=== PATIENT | female | born 1980 | race Caucasian/White ===

== ENCOUNTER 2018-10-18 07:00 | Day surgery (SDC) | payer OTHER ==
[2018-10-15 08:18] VITALS: BMI 53.7
[2018-10-18] MEDS ORDERED: ROCURONIUM BROMIDE 50 MG/5 ML VIAL ONE (08:18)
[2018-10-18] MEDS ORDERED: PROPOFOL 20 ML ONE ×2 (08:18→09:29)
[2018-10-18] MEDS ORDERED: MIDAZOLAM HCL 2 MG/2 ML SINGLE DOSE VIAL ONE ×2 (08:19)
[2018-10-18] MEDS ORDERED: SUCCINYLCHOLINE CHLORIDE 200 MG/10 ML VIAL ONE (09:01)
[2018-10-18] MEDS ORDERED: DEXAMETHASONE SOD PHOSPHATE 4 MG/1 ML VIAL ONE (09:16)
[2018-10-18] MEDS ORDERED: DESFLURANE GAS 240 ML BOTTLE IH ONE (09:37)
[2018-10-18] MEDS ORDERED: GLYCOPYRROLATE 0.2 MG/1 ML VIAL ONE (09:56)
[2018-10-18] MEDS ORDERED: NEOSTIGMINE METHYLSULFATE 0.5 MG/ML - 10 ML MDV ONE (09:56)
[2018-10-18] MEDS ORDERED: BUPIVACAINE HCL/PF (5 MG/ML) 30 ML VIAL IJ ONE ×2 (10:03)
--- NOTE | 2018-10-18 10:41 | OP ---
Operative Note - Note: Operative Date: 10/18/18 Pre-Operative Diagnosis: elective sterilization Operation: laparoscopic bilateral salpingectomy Post-Operative Diagnosis: Same as Pre-op Surgeon: Yamileth Suarez Log Rafter: Brittany Brito Anesthesiologist/GUTTER HANGER: Tata Chapa Anesthesia: General Specimens Removed: bilateral fallopian tubes Estimated Blood Loss (mls): 5 Drains, Volume Out (mls): 250 (urine in howard) Fluid Volume Replaced (mls): 700 Operative Report Dictated: Yes
--- NOTE | 2018-10-18 10:42 | SURG ---
Surgery Body Line Finisher Note Body Line Finisher: Brittany Brito PA-C Date of Service: 10/18/18 Diagnosis: elective sterilization Procedure: laparoscopic bilateral salpingectomy I was present for the entirety of the operative procedure. For further detail, please refer to operative report. Visit type - Case Type Case Type: Scheduled - Emergency Emergency Visit: No - New patient This patient is new to me today: Yes Date on this admission: 10/18/18
--- NOTE | 2018-10-18 11:03 | HP ---
History & Physical Update - History History: No Change - Physical Physical: No Change - Assessment Assessment: No Change - Plan Plan: No Change (no change since visit on 09/24/18)
[2018-10-18] MEDS ORDERED: LACTATED RINGERS SOLUTION 1,000 ML IV SCH (12:00)
[2018-10-18] MEDS ORDERED: oxyCODONE HCL 5 MG TABLET PO PRN (12:00)
[2018-10-18] MEDS ORDERED: ONDANSETRON 4 MG/2 ML VIAL IVPUSH PRN (12:00)
--- NOTE | 2018-10-18 12:25 | OP ---
Operative Note - Note: Operative Date: 10/18/18 Pre-Operative Diagnosis: voluntary sterilization Operation: Laparoscopic bilateral salpingectomy Findings: normal tubes ad ovaries Post-Operative Diagnosis: Same as Pre-op Surgeon: Yamileth Suarez Anesthesiologist/SOCKET WELDER HELPER: Tata Chapa Anesthesia: General Estimated Blood Loss (mls): 5 Operative Report Dictated: Yes
[2018-10-18] MEDS ORDERED: oxyCODONE HCL 5 MG TABLET PO ONE (13:10)
[2018-10-18] MEDS ORDERED: oxyCODONE HCL 5 MG TABLET ONE (13:17)
[2018-10-18 14:45] VITALS: BP 105/63; PULSE 78; TEMP 98.2
--- NOTE | 2018-10-18 21:05 | OP ---
DATE OF OPERATION: 10/18/2018 PREOPERATIVE DIAGNOSIS: Voluntary sterilization. OPERATION: Laparoscopic bilateral salpingectomy. POSTOPERATIVE DIAGNOSIS: Voluntary sterilization. FINDINGS: Normal tubes and ovaries. SURGEON: Yamileth Suarez MD DATA REPORT ANALYST: Brittany ANESTHESIA: General. ANESTHESIOLOGIST: Tata Chapa MD ESTIMATED BLOOD LOSS: 500 mL PROCEDURE: Patient was taken to the operating room, placed in dorsal lithotomy position, prepped and draped in the usual sterile fashion. A timeout was performed in accordance to hospital regulation. A Baxter catheter was inserted into the bladder. Attention was then drawn to the umbilicus where a 5-mm umbilical incision was made. Veress needle was inserted into the cavity. Approximately 3-4 L of CO2 was insufflated in the cavity. Veress needle was then removed, and a 5-mm trocar was then inserted. Laparoscope and camera attached. Visualization revealed normal tubes and ovaries. Two trocars were placed in the lower left and lower right abdomen under direct visualization after scalpel had been used. Grasper and LigaSure were then attached. Left tube was grasped, and left salpingectomy was then done. Tube was then submitted to pathology. Attention was then drawn to the right side where the right tube was grasped, and LigaSure was then used to perform a right salpingectomy. Tube was also removed and submitted to Pathology. After hemostasis was achieved, all instruments were then removed. CO2 was removed from the abdomen. Incisions were then closed using 4-0 Biosyn suture in a subcuticular fashion. Wounds washed and dressed. Patient had tolerated the procedure well. ESTIMATED BLOOD LOSS: 5 mL Eduard JUÁREZ/[id number]
--- NOTE | 2018-10-19 16:08 | PATH ---
Surgical Pathology Report Patient Name: INDERJIT PATINO Med. Rec. #: [id number] /Age/Gender: 1980 (Age: 38) / F Account: [id number] Location: AMBULATORY SURG Taken: 10/18/2018 Received: 10/18/2018 Reported: 10/19/2018 Physicians: Yamileth Suarez M.D. Specimen(s) Received A: LEFT FALLOPIAN TUBE B: RIGHT FALLOPIAN TUBE Clinical History Desires sterilization Final Diagnosis A. LEFT FALLOPIAN TUBE, SALPINGECTOMY: FULL LUMINAL PORTION OF UNREMARKABLE FALLOPIAN TUBE, INCLUDING FIMBRIATED END. B. RIGHT FALLOPIAN TUBE, SALPINGECTOMY: FULL LUMINAL PORTION OF UNREMARKABLE FALLOPIAN TUBE, INCLUDING FIMBRIATED END. Electronically Signed Fortunato De Leon M.D. Gross Description A. Received in formalin labeled "left fallopian tube," is a 6 cm in length fimbriated fallopian tube. The outer surface is alamo-red and smooth. Sectioning reveals an unremarkable lumen. Deodorizer Operator sections are submitted in 2 cassettes as follows: 1-fimbria; 2-cross sections of fallopian tube. B. Received in formalin labeled "right fallopian tube," is a 7.5 cm in length fimbriated fallopian tube. The outer surface is alamo-red and smooth. Sectioning reveals an unremarkable lumen. Deodorizer Operator sections are submitted in 2 cassettes as follows: 1-fimbria; 2-cross sections of fallopian tube. /10/18/2018 saudi10/18/2018
== END 2018-10-18 14:45 | disposition home or self-care (01) ==
LOC: JASUSAT 07:00
PROVIDERS: ATTEND Obstetrics & Gynecology
PROC: 0U574ZZ Destruction of Bilateral Fallopian Tubes, Percutaneous Endoscopic Approach (ICD-10-PCS; principal; 2018-10-18 08:30)
DX: Z30.2 Encounter for sterilization (principal); E66.01 Morbid (severe) obesity due to excess calories
CPT/HCPCS: 86850; 86900; 86901; 88302-TC; 94760

== ENCOUNTER 2019-11-13 05:58 | Emergency (ER) | payer OTHER ==
[2019-11-13 06:49] VITALS: BP 126/75; PULSE 88; TEMP 97.7; BMI 53.0
[2019-11-13] MEDS ORDERED: SODIUM CHLORIDE FOR INHALATION 3 ML VIAL.NEB IH ONE (07:20)
--- NOTE | 2019-11-13 07:39 | PDOC ---
History of Present Illness - General Chief Complaint: Cold Symptoms Stated Complaint: PERSISTENT COUGH Time Seen by Provider: 11/13/19 07:31 - History of Present Illness Initial Comments: The pt is a 39F w/ no reported PMH who presents for evaluation of 4 days of intermittently productive cough, chills, and myalgias. She denies fevers, N/V, diarrhea, dysuria, hematuria, changes in sensation, or sick contacts. Pt received the flu vaccine this year. She has tried taking NyQuil and Tylenol for her symptoms with little relief. 11/13/19 07:32 Past History - Past Medical History Allergies/Adverse Reactions: Allergies Allergy/AdvReac Type Severity Reaction Status Date / Time No Known Allergies Allergy Verified 10/15/18 08:20 Home Medications: Ambulatory Orders Cetirizine HCl [Zyrtec -] 10 mg PO DAILY 10/15/18 Oxycodone HCl/Acetaminophen [Percocet 5-325 mg Tablet] 1 - 2 tab PO Q4H PRN #20 tablet MDD 6 10/18/18 Benzonatate [Tessalon Pearls -] 100 mg PO TID #21 capsule 11/13/19 Anemia: No Asthma: No Cancer: No Cardiac Disorders: No CVA: No COPD: No CHF: No Dementia: No Diabetes: No GI Disorders: No Disorders: No HTN: No Hypercholesterolemia: No Liver Disease: No Seizures: No Thyroid Disease: No - Psycho Social/Smoking Cessation Hx Smoking Status: No Smoking History: Never smoked Number of Cigarettes Smoked Daily: 0 Hx Alcohol Use: No Drug/Substance Use Hx: No Substance Use Type: None Hx Substance Use Treatment: No Review of Systems - Review of Systems Able to Perform ROS?: Yes Comments:: GENERAL/CONSTITUTIONAL: No fever or weakness HEAD, EYES, EARS, NOSE AND THROAT: No change in vision. No change in hearing. No sore throat CARDIOVASCULAR: No chest pain or shortness of breath RESPIRATORY: Denies hemoptysis GASTROINTESTINAL: No nausea, vomiting, diarrhea or constipation GENITOURINARY: No dysuria, frequency, or change in urination MUSCULOSKELETAL: No joint, neck or back pain SKIN: No rash NEUROLOGIC: No headache, vertigo, loss of consciousness, or change in strength/ sensation ENDOCRINE: No increased thirst. No abnormal weight change HEMATOLOGIC/LYMPHATIC: No anemia, easy bleeding, or history of blood clots ALLERGIC/IMMUNOLOGIC: No hives or skin allergy 11/13/19 07:33 Is the patient limited Arabic proficient: No *Physical Exam - Vital Signs Last Vital Signs Temp Pulse Resp BP Pulse Ox 97.7 F 88 18 126/75 98 11/13/19 06:10 11/13/19 06:10 11/13/19 06:10 11/13/19 06:10 11/13/19 06:10 - Physical Exam GENERAL: Awake, alert, and oriented to person/place/time, in no acute distress HEAD: No signs of trauma, normocephalic, atraumatic EYES: PERRLA, EOMI, sclera anicteric, conjunctiva clear ENT: Hearing grossly normal, nares patent, oropharynx clear without exudates. Moist mucosa LUNGS: No distress, speaks in full sentences, clear to auscultation bilaterally HEART: Regular rate and rhythm, normal S1 and S2, no murmurs appreciated, peripheral pulses normal and equal bilaterally ABDOMEN: Soft, nontender, normoactive bowel sounds. No guarding, no rebound EXTREMITIES: Normal inspection, Normal range of motion, no edema. No clubbing or cyanosis NEUROLOGICAL: Cranial nerves II through XII grossly intact. Normal speech, normal gait, no focal sensorimotor deficits SKIN: Warm, Dry 11/13/19 07:34 Medical Decision Making - Medical Decision Making The pt is a 39F w/ no reported PMH who presents for evaluation of 4 days of intermittently productive cough, chills, and myalgias. ED Course symptoms likely 2/2 viral syndrome Pt outside of window for influenza treatment Will give NS neb Rx for tessalon perles 11/13/19 07:34 Pt non-toxic appearing Plan for D/C w/ PCP f/u Discharge instructions and return precautions given Patient in agreement and verbalized understanding Dispo: Home 11/13/19 08:46 Discharge - Discharge Information Problems reviewed: Yes Clinical Impression/Diagnosis: Viral syndrome Condition: Stable - Admission No - Additional Discharge Information Prescriptions: Benzonatate [Tessalon Pearls -] 100 mg PO TID #21 capsule - Follow up/Referral Referrals: Francesca Parsons MD [Primary Care Provider] - - Patient Discharge Instructions Patient Printed Discharge Instructions: DI for Viral Syndrome Additional Instructions: You were seen in the Emergency Department for evaluation of cough. Your symptoms are likely related to a virus and will likely self resolve within a week. Review the handout provided at discharge. Be sure to frequently wash your hands. Avoid close contact with young children, elderly, or weak immune system. A prescription was sent to your pharmacy for tessalon perles which help alleviate cough. You may also take over the counter medications with dextromethorphan in it for symptom alleviation. Follow up with your primary care doctor within a week. - Post Discharge Activity
--- NOTE | 2019-11-13 08:48 | PDOC ---
Attending Attestation - Resident Resident Name: Griffin Lechuga - HPI HPI: 11/13/19 08:40 39 y/o female with 4 day c/o cough, with some yellow phlegm, no feevr, body aches, taking Nyquil and zyrtec with minimal relief of symptoms. Pt is non toxc appearing not in acute distress. - Physicial Exam PE: 11/13/19 08:48 General: well nourished, mildly obese 39 y/o female not in acute distress HEENT: NCAT, KEYUR,EOMI Neck: supple Lungs: + bs [place] CTA Heart: S1S2 regular Abd: + bs abd soft no guarding or tenderness Neuro: Pt is alert and oriented x3 , HOFFMAN's no focal deficits, nl gait - Medical Decision Making 11/13/19 08:50 39 y/o female here in ED for evaluation of uri type symptoms x 4 days. Pt not in acute distress has nl exam and vitals. Would continue with zyrtec, inc fluid intake, tylenol or motrin for body aches,Pt felt better after saline nebulizer will dc home. Pt to f/u with PCP and return to ED for trouble breathing ,chest pain or as needed. PT agrees with this DC plan. 11/13/19 08:53
== END 2019-11-13 08:48 | disposition home or self-care (01) ==
LOC: JER 05:58
PROC: 3E0F7GC Introduction of Other Therapeutic Substance into Respiratory Tract, Via Natural or Artificial Opening (ICD-10-PCS; principal; 2019-11-13)
DX: B34.9 Viral infection, unspecified (principal)
CPT/HCPCS: 99281-25

== ENCOUNTER 2023-11-18 10:51 | Emergency (ER) | payer OTHER ==
[2023-11-18 11:07] VITALS: BP 108/78; PULSE 83; RESP 18; TEMP 98.3; BMI 52.1
== END 2023-11-18 12:11 | disposition home or self-care (01) ==
LOC: JERFT 10:51
DX: R05.9 Cough, unspecified (principal); M79.10 Myalgia, unspecified site; R06.7 Sneezing; R09.81 Nasal congestion; J01.90 Acute sinusitis, unspecified; B97.4 Respiratory syncytial virus as the cause of diseases classified elsewhere; Z20.822 Contact with and (suspected) exposure to COVID-19
CPT/HCPCS: 0241U-QW; 99283-25

== ENCOUNTER 2025-09-16 08:43 | Emergency (ER) | payer OTHER ==
[2025-09-16 08:58] VITALS: RESP 18; BMI 51.7
[2025-09-16] MEDS ORDERED: MECLIZINE HCL 25 MG TABLET (FP) ONE (09:33)
[2025-09-16] MEDS ORDERED: METOCLOPRAMIDE HCL INJECTION 10 MG/2 ML VIAL ONE (09:33)
[2025-09-16] MEDS ORDERED: ACETAMINOPHEN INJECTION 100 ML ONE (09:33)
[2025-09-16 09:57] LABS: ABSOLUTE IMMATURE GRANULOCYTES 0.05 x10^3/uL (0.0-0.031); BASOPHILS # 0.04 x10^3/uL (0.01-0.08); EOSINOPHIL % 1.0 % (0.7-5.8); EOSINOPHILS # 0.11 x10^3/uL (0.04-0.36); MCHC 31.8 g/dl (32.2-35.5); MEAN CELL VOLUME 90.0 fl (79.4-94.8); MEAN PLT VOLUME 9.0 fl (9.4-12.3); MONOCYTE # 0.86 x10^3/uL (0.24-0.86); MONOCYTE % 7.7 % (4.7-12.5); RDW 13.8 % (12.2-17.1)
[2025-09-16] MEDS: MECLIZINE HCL 25 MG TABLET (FP) PO ONE (10:00)
[2025-09-16] MEDS: ACETAMINOPHEN 1000 MG/100 ML BAG IVPB ONE (10:00)
[2025-09-16] MEDS: LACTATED RINGERS SOLUTION 1000 ML INFUS.BAG IV ONE (10:00)
[2025-09-16] MEDS: METOCLOPRAMIDE HCL INJECTION 10 MG/2 ML VIAL IVPUSH ONE (10:01)
[2025-09-16 10:33] LABS: HCG,QUALITATIVE URINE Negative
[2025-09-16 10:36] LABS: URINE APPEARANCE Clear; URINE BILIRUBIN Negative (NEGATIVE); URINE COLOR Yellow; URINE GLUCOSE (UA) Negative (NEGATIVE); URINE KETONE Negative (NEGATIVE); URINE LEUK ESTERASE Negative (NEGATIVE); URINE NITRITE Negative (NEGATIVE); URINE PROTEIN Negative (NEGATIVE); URINE UROBILINOGEN 0.2 mg/dL (0.2-1.0)
[2025-09-16 10:37] LABS: GLUCOSE,RANDOM 103.0 mg/dL (74-106)
[2025-09-16 10:38] LABS: CO2 27.0 mmol/L (21-32); TOT PROT 6.1 g/dl (6.4-8.2)
[2025-09-16 10:40] LABS: ALK PHOS 55.0 U/L (40-150)
[2025-09-16 10:43] LABS: CREATININE 0.67 mg/dL (0.55-1.3); SGOT/AST 15.0 U/L (5-34); SGPT/ALT 7.0 U/L (0-55)
[2025-09-16] MEDS ORDERED: KETOROLAC TROMETHAMINE 15 MG/ML VIAL ONE (13:23)
[2025-09-16] MEDS: KETOROLAC TROMETHAMINE 15 MG/ML VIAL IVPUSH ONE (13:32)
[2025-09-16 14:06] VITALS: PULSE 63; TEMP 98
[2025-09-16] MEDS ORDERED: MAGNESIUM SULFATE IN WATER 2 GM/50 ML IVPB IVPB ONE (14:11)
[2025-09-16] MEDS ORDERED: DEXAMETHASONE SOD PHOSPHATE 10 MG/1 ML VIAL ONE (14:11)
[2025-09-16] MEDS: MAGNESIUM SULFATE IN WATER 2 GM/50 ML IVPB IVPB ONE (14:22)
[2025-09-16] MEDS: DEXAMETHASONE SOD PHOSPHATE 10 MG/1 ML VIAL IVPUSH ONE (14:22)
[2025-09-16 15:21] VITALS: BP 115/69
[2025-09-16 15:58] LABS: HCV DIAGNOSTIC IN-HOUSE W/RFLX NON-REACTIVE (NONREACTIVE); HIV INTERPRETATION NEGATIVE (NEGATIVE)
== END 2025-09-16 15:27 | disposition home or self-care (01) ==
LOC: JER 08:43
PROC: 3E033GC Introduction of Other Therapeutic Substance into Peripheral Vein, Percutaneous Approach (ICD-10-PCS; principal; 2025-09-16)
PROC: 3E033NZ Introduction of Analgesics, Hypnotics, Sedatives into Peripheral Vein, Percutaneous Approach (ICD-10-PCS; 2025-09-16)
PROC: 3E033GC Introduction of Other Therapeutic Substance into Peripheral Vein, Percutaneous Approach (ICD-10-PCS; 2025-09-16)
PROC: 3E0333Z Introduction of Anti-inflammatory into Peripheral Vein, Percutaneous Approach (ICD-10-PCS; 2025-09-16)
PROC: 3E033GC Introduction of Other Therapeutic Substance into Peripheral Vein, Percutaneous Approach (ICD-10-PCS; 2025-09-16)
DX: R51.9 Headache, unspecified (principal); R42 Dizziness and giddiness; R11.0 Nausea; H53.149 Visual discomfort, unspecified
CPT/HCPCS: 36415; 70450-TC; 80053; 81003; 83735; 84703; 85025; 86803; 87086; 87389; 87637-QW; 93005; 93010; 99285-25; J1100